=== PATIENT | male | born 1940 | race Caucasian/White ===

== ENCOUNTER 2017-01-22 16:53 | Inpatient (IN) | payer OTHER ==
[~2017-01-22] VITALS: Ht 165.1 cm; Wt 67.5 kg
[2017-01-22 21:30] VITALS: Ht 165.1 cm; Wt 67.5 kg
[2017-01-22] MEDS ORDERED: OXYC-279 PO (21:48)
[2017-01-22] MEDS ORDERED: ATEN-51 PO (21:48)
[2017-01-22] MEDS ORDERED: SIMV20TA6 PO (21:48)
[2017-01-22] MEDS ORDERED: OMEG300C3 PO (21:48)
[2017-01-22] MEDS ORDERED: ASPI81TA3 PO (21:48)
[2017-01-22 22:22] VITALS: BP 148/67; RESP 18
[2017-01-22] MEDS ORDERED: DOCUSATE SODIUM 100 MG CAP PO PRN (22:30)
[2017-01-22] MEDS ORDERED: OXYCODONE/ACETAMINOPHEN (5/325) TAB PO PRN (22:30)
[2017-01-22] MEDS ORDERED: ACETAMINOPHEN 325 MG TAB PO PRN (22:30)
[2017-01-22] MEDS: ONDANSETRON 4 MG INJ IV PRN (23:57)
[2017-01-22] MEDS: morphine 2 MG INJ IV PRN (23:57)
[2017-01-23] MEDS: PANTOPRAZOLE (EC) 40 MG TAB PO SCH (05:39)
[2017-01-23 06:13] LABS: ADD SCAN DIFF NO
[2017-01-23 06:19] LABS: BASOPHILS % 0.5 % (0.0-2.0); EOSINOPHILS % 0.5 % (0.0-7.0); HEMOGLOBIN 11.6 g/dl (14.0-18.0); LYMPHOCYTES # 3.2 10^3/ul (0.8-2.9); LYMPHOCYTES % 37.7 % (15.0-51.0); MEAN CORPUSCULAR HEMOGLOBIN 31.7 pg (29.0-33.0); MEAN CORPUSCULAR HGB CONC 34.1 g/dl (32.0-37.0); MEAN CORPUSCULAR VOLUME 92.9 fl (82.0-101.0); MEAN PLATELET VOLUME 10.3 fl (7.4-10.4); MONOCYTE # 1.2 10^3/ul (0.3-0.9); MONOCYTES % 14.6 % (0.0-11.0); NEUTROPHIL # 3.9 10^3/ul (1.6-7.5); NEUTROPHILS % 46.3 % (39.0-77.0); PLATELET COUNT 255 10^3/UL (140-415); RED BLOOD COUNT 3.66 10^6/ul (4.70-6.10); RED CELL DISTRIBUTION WIDTH 12.1 % (11.5-14.5); WHITE BLOOD COUNT 8.4 10^3/ul (4.8-10.8)
[2017-01-23 06:41] LABS: ALBUMIN 4.4 g/dl (3.3-4.9); ALBUMIN/GLOBULIN RATIO 1.46; BILIRUBIN,INDIRECT 0.2 mg/dl (0-1.1); BILIRUBIN,TOTAL 0.2 mg/dl (0.2-1.3); CALCIUM 9.9 mg/dl (8.4-10.2); CREATININE 0.94 mg/dl (0.61-1.24); POTASSIUM 4.1 mmol/L (3.5-5.1); TOTAL PROTEIN 7.4 g/dl (6.1-8.1)
[2017-01-23 07:19] VITALS: BP 110/53; RESP 16
[2017-01-23] MEDS: ASPIRIN 81 MG TAB PO SCH (09:11)
[2017-01-23] MEDS: ATENOLOL 25 MG TAB PO SCH (09:12)
[2017-01-23] MEDS: morphine 2 MG INJ IV PRN (14:29)
[2017-01-23] MEDS: ONDANSETRON 4 MG INJ IV PRN (14:29)
[2017-01-23] MEDS: ALPRAZOLAM 0.25 MG TAB PO PRN (16:18)
[2017-01-23 19:51] VITALS: BP 98/50; RESP 20
--- NOTE | 2017-01-23 20:15 | QN ---
Documentation Comment [id number] LESLEY SHEPPARD MD Jan 23, 2017 20:15
--- NOTE | 2017-01-23 20:52 | RADRPT ---
PROCEDURE: MRI Lumbar Spine without contrast. CLINICAL INDICATION: 76-year-old male with lumbar spine pain. TECHNIQUE: An MRI of the lumbar spine was performed with multiple sequences in the sagittal and ax ial planes without contrast. Images reviewed on a high-resolution PACS system. COMPARISON: None available at the time of dictation. FINDINGS: There is a moderate amount of motion artifact on all of the axial sequences, significantly limiting evaluation. The alignment of the lumbar spine is normal. There is transitional anatomy with 6 lumb ar-type vertebral bodies and well formed disc between S1-S2. No vertebral body subluxation is seen. There is diffuse desiccation of the intervertebral discs with preserved disc-space heights. No si gnificant discogenic endplate changes are seen y. The vertebral body heights and marrow signal are normal. The conus medullaris is visible at the L1 level and appears grossly normal. The lumbar ne rve roots are normal in appearance. The paraspinal soft tissues are unremarkable. No significant pa raspinal soft tissue swelling. L1-L2: The posterior margin of the disc is normal in appearance. No significant disc bulge or prot rusion is evident. The central canal and neural foramina are adequately patent. L2-L3: There is a 2 mm annular disc bulge asymmetric to the left foraminal region. The thecal sac and lateral recesses are patent. There is mild bilateral facet spondylosis. There is mild left brian ral foraminal narrowing. The right neural foramen is patent. L3-L4: There is a 2 mm annular disc bulge. The thecal sac and lateral recesses are patent. There is mild bilateral facet spondylosis. There is mild bilateral neural foraminal narrowing. L4-L5: There is a 2-3 mm annular disc bulge, slightly asymmetric to the left paracentral/foraminal region. There is moderate bilateral facet spondylosis. There is moderate left and mild right later al recess narrowing. The thecal sac measures 10 mm midline AP diameter. There is moderate bilatera l neural foraminal narrowing. L5-S1: There is moderate spondylosis asymmetric to the right with asymmetric left-sided disc-space height loss and superimposed 2-3 mm annular disc bulge. There is moderate bilateral facet spondylosi s with prominent buckling ligamentum flavum. The thecal sac measures 7 mm midline AP diameter. The re is severe narrowing of both lateral recesses. There is severe left and mild right neural foramin al narrowing. IMPRESSION: 1. Multilevel mild to moderate spondylosis/degenerative enthesopathy, worst at L5-S1 with subsequen t severe narrowing of both lateral recesses and severe left neural foraminal narrowing at this level . 2. No evidence of fracture or dislocation. RPTAT: HGAS .Jose D Doshi MD, MD Date Time Electronically viewed and signed by .Jose D Doshi MD, on 01/23/2017 20:52 .S/
[2017-01-23] MEDS: KETOROLAC 30 MG INJ IV PRN (21:17)
[2017-01-23] MEDS: BISACODYL (EC) 5 MG TAB PO PRN (21:46)
--- NOTE | 2017-01-24 01:20 | RADRPT ---
PROCEDURE: MRI right shoulder CLINICAL INDICATION: Right shoulder intractable pain TECHNIQUE: Noncontrast MRI of the right shoulder, with axial, sagittal and coronal reformatted jazz ges. T2-weighted and proton density sequences were employed. COMPARISON: None FINDINGS: No acute fracture, dislocation or marrow replacement process. Mild to moderate right shoulder joint effusion with migration of contrast in the subacromial subdelt oid space. There is a likely full-thickness partial with tear at the anterior region of the suprasp inatus, and this may be further evaluated on the MR arthrogram of the right shoulder if clinically r equired. Remaining rotator cuff appears intact. Intra-articular biceps is intact. Tears of the post erior superior and superior posterior glenoid labrum evidenced by attenuation. The glenoid labrum is otherwise unremarkable. Degenerative changes at the articular humeral head with likely full-thickness articular cartilage ch ondrolysis the anterior lateral aspect of the articular humeral head and the posterior articular hum eral head. Fibrocystic changes seen in the regions. Degenerative changes in the acromioclavicular joint. IMPRESSION: 1. Mild to moderate right shoulder joint effusion. 2. Likely tear of the anterior region of the supraspinatus, with migration of joint fluid into the subacromial subdeltoid bursa. 3. This may be further evaluated by MR arthrogram. 4. Tears of the posterior superior and superior glenoid labrum. 5. No acute fracture. RPTAT: [facility] Physician Rod Date Time Electronically viewed and signed by Physician Rod on 01/24/2017 01:20 RS/
--- NOTE | 2017-01-24 01:25 | RADRPT ---
PROCEDURE: MR Knee. CLINICAL INDICATION: Pain and inflammation in the left knee. TECHNIQUE: Noncontrast MRI of the left knee, with axial, sagittal and coronal reformatted images. Proton density images and fat saturation technique were employed. COMPARISON: No prior studies are available for comparison. FINDINGS: Increased fluid signal within the ACL suggests an age indeterminate nonspecific low grade ACL injury , with intact fibers identified. The PCL extensor mechanism tendons and collateral ligamentous supporting structures are all normal. The posterolateral corner is intact. The menisci are normal. There are no tears flaps or flipped meniscal fragments. The meniscal roots are intact. Partial thickness articular cartilage chondrolysis in the bilateral articular patella. Medial anter ior femoral condyle full-thickness articular cartilage chondrolysis. The articular cartilage is oth erwise intact. There are no abnormal fluid collections. Superior and inferior patellar enthesophytes. IMPRESSION: 1. Partial thickness articular cartilage chondrolysis in the bilateral articular patella. 2. Medial anterior femoral condyle full-thickness articular cartilage chondrolysis. 3. Age indeterminate nonspecific low grade ACL injury, with intact fibers identified. 4. Otherwise, no acute process in the left knee. RPTAT: [facility] Physician Rod Date Time Electronically viewed and signed by Physician Rod on 01/24/2017 01:25 RS/
[2017-01-24 03:20] VITALS: BP 115/57; RESP 16
[2017-01-24] MEDS: KETOROLAC 30 MG INJ IV PRN (05:36)
[2017-01-24] MEDS: PANTOPRAZOLE (EC) 40 MG TAB PO SCH (05:36)
[2017-01-24 06:50] LABS: ALBUMIN 4.4 g/dl (3.3-4.9); ALBUMIN/GLOBULIN RATIO 1.46; BILIRUBIN,INDIRECT 0.3 mg/dl (0-1.1); BILIRUBIN,TOTAL 0.3 mg/dl (0.2-1.3); CALCIUM 9.8 mg/dl (8.4-10.2); CREATININE 1.06 mg/dl (0.61-1.24); POTASSIUM 4.2 mmol/L (3.5-5.1); TOTAL PROTEIN 7.4 g/dl (6.1-8.1)
[2017-01-24] MEDS: morphine 2 MG INJ IV PRN (08:10)
[2017-01-24 08:15] VITALS: BP 135/63; RESP 18
[2017-01-24] MEDS: ATENOLOL 25 MG TAB PO SCH (09:11)
[2017-01-24] MEDS: ASPIRIN 81 MG TAB PO SCH (09:11)
[2017-01-24 14:23] VITALS: BP 121/59; RESP 18
[2017-01-24] MEDS ORDERED: HYDROmorphONE 2 MG TAB PO PRN (14:30)
[2017-01-24] MEDS: HYDROmorphONE 1 MG/ML SYG IV PRN ×2 (15:12→21:09)
[2017-01-24 20:00] VITALS: BP 117/59; PULSE 60; RESP 16
[2017-01-24] MEDS: ALPRAZOLAM 0.25 MG TAB PO PRN (21:50)
--- NOTE | 2017-01-24 23:26 | PN ---
Date/Time of Note Date/Time of Note DATE: 01/24/17 TIME: 23:22 Assessment/Plan VTE Prophylaxis VTE Prophylaxis Intervention: other Lines/Catheters IV Catheter Type (from Nrsg): Saline Lock Assessment/Plan Chief Complaint/Hosp Course back pain shoulder pain djd oa plan pain meds Problems: Subjective 24 Hr Interval Summary Subjective hx not possible: other (back pain,ortho saw pt continue pain meds per ortho) Exam/Review of Systems Vital Signs Vitals Vital Signs Date Time Temp Pulse Resp B/P Pulse Ox O2 Delivery O2 Flow Rate FiO2 01/24/17 20:00 99.1 60 16 117/59 94 Room Air Intake and Output 01/23/17 01/23/17 01/24/17 15:00 23:00 07:00 Intake Total 1560 ml 680 ml Balance 1560 ml 680 ml Exam Neck: supple Respiratory: clear to auscultation Cardiovascular: regular rate and rhythm Gastrointestinal: soft Musculoskeletal: nl extremities to inspection Extremities: normal pulses Results Result Diagram: 01/23/17 0542 01/24/17 0547 Results 24 hrs Laboratory Tests Test 01/24/17 05:47 Sodium Level 133 L Potassium Level 4.2 Chloride Level 98 Carbon Dioxide Level 28 Anion Gap 11 Blood Urea Nitrogen 26 H Creatinine 1.06 Glucose Level 92 Calcium Level 9.8 Total Bilirubin 0.3 Direct Bilirubin 0.00 Indirect Bilirubin 0.3 Aspartate Amino Transf (AST/SGOT) 24 Alanine Aminotransferase (ALT/SGPT) 32 Alkaline Phosphatase 53 Total Protein 7.4 Albumin 4.4 Globulin 3.00 Albumin/Globulin Ratio 1.46 Medications Medications Current Medications Pantoprazole (Protonix Tab) 40 mg DAILY@06 PO Last administered on 01/24/17 05 :36; Admin Dose 40 MG; Start 01/23/17 at 06:00 Bisacodyl (Dulcolax) 10 mg DAILY PRN PO CONSTIPATION Last administered on 21:46; Admin Dose 10 MG; Start 01/22/17 at 22:30 Docusate Sodium (Colace) 100 mg BID PRN PO CONSTIPATION Last administered on 21:07; Admin Dose 100 MG; Start 01/22/17 at 22:30 Acetaminophen (Tylenol Tab) 650 mg Q6H PRN PO PAIN AND OR ELEVATED TEMP; Start 01/22/17 at 22:30 Aspirin (Aspirin) 81 mg DAILY PO Last administered on 01/24/17 09:11; Admin Dose 81 MG; Start 01/23/17 at 09:00 Atenolol (Tenormin) 25 mg DAILY PO Last administered on 01/24/17 09:11; Admin Dose 25 MG; Start 01/23/17 at 09:00 Ondansetron HCl (Zofran Inj) 4 mg Q4H PRN IV NAUSEA AND/OR VOMITING Last administered on 01/23/17 14:29; Admin Dose 4 MG; Start 01/23/17 at 00:00 Alprazolam (Xanax) 0.5 mg QHS PRN PO SLEEP Last administered on 01/24/17 21:50 ; Admin Dose 0.5 MG; Start 01/23/17 at 00:00 Hydromorphone HCl (Dilaudid) 1 mg Q4H PRN IV PAIN Last administered on 21:09; Admin Dose 1 MG; Start 01/24/17 at 14:30 Hydromorphone HCl (Dilaudid) 4 mg Q4H PRN PO PAIN; Start 01/24/17 at 14:30 LESLEY SHEPPARD MD Jan 24, 2017 23:26
[2017-01-25] MEDS: HYDROmorphONE 1 MG/ML SYG IV PRN ×4 (01:36→18:24)
[2017-01-25] MEDS: PANTOPRAZOLE (EC) 40 MG TAB PO SCH (05:42)
--- NOTE | 2017-01-25 07:04 | CONS ---
DATE OF ADMISSION: 01/22/2017 DATE OF CONSULTATION: 01/24/2017 CHIEF COMPLAINT: Back pain, left shoulder pain. HISTORY OF PRESENT ILLNESS: This is a 76-year-old male who is complaining of low back pain and left shoulder pain for the last couple of months. He denies any recent infections. He denies any history of trauma. He states that the low back pain is constant. It does not radiate. He denies any numbness or weakness. He is also complaining in pain on top of the left shoulder. The pain is sharp. There is no numbness or weakness. PAST MEDICAL HISTORY: None. MEDICATION: None. PAST SURGICAL HISTORY: None. SOCIAL HISTORY: He lives at home. Denies tobacco, alcohol or drug use. FAMILY HISTORY: Noncontributory. ALLERGIES: NO KNOWN DRUG ALLERGIES. PHYSICAL EXAMINATION: VITAL SIGNS: Afebrile. 98.7, 148/64, pulse of 68, respiratory rate of 16. EXTREMITIES: Left shoulder, there is no erythema, warmth of fluctuance. He is tender over the anterior deltoid. 160 degrees of flexion, 40 degrees of extension, 80 degrees of external rotation, 70 degrees of internal rotation, 170 degrees of abduction. Negative Neer's. Negative Scales test. 5/5 function of the axial, radial, ulnar and median nerves. LUMBAR SPINE: Tender to palpation over the lumbar region. Decreased range of motion due to pain. 5/5 function of quadriceps, tibialis anterior, gastroc soleus. LABORATORY: 1. MRI, left shoulder: There is minimal left shoulder joint effusion. There is a tear of the supraspinatus tendon. 2. Lumbar spine MRI: There is multilevel degenerative disease of the lumbar spine with spondylosis. There is a 7 mm disk herniation at L5-S1. IMPRESSION: A 76-year-old male with multilevel lumbar disk herniation and left shoulder rotator cuff tear. PLAN: Patient can be discharged from orthopedic standpoint. He would benefit from core strengthening, exercises for his lumbar spine. In addition, a back brace should be ordered. In regard to his left shoulder, he can follow-up as an outpatient for possible corticosteroid injection. All questions were answered to his satisfaction. Dictated By: Segundo Petit MD /areli/italia /Document#: [id number] MTDD
[2017-01-25 07:16] VITALS: BP 117/56; RESP 18
[2017-01-25] MEDS: ASPIRIN 81 MG TAB PO SCH (08:57)
[2017-01-25] MEDS: ATENOLOL 25 MG TAB PO SCH (08:57)
--- NOTE | 2017-01-25 13:07 | PN ---
Date/Time of Note Date/Time of Note DATE: 01/25/17 TIME: 13:05 Assessment/Plan VTE Prophylaxis VTE Prophylaxis Intervention: ambulation Lines/Catheters IV Catheter Type (from Nrsg): Saline Lock Assessment/Plan Chief Complaint/Hosp Course 1. back pain due to djd: Multilevel mild to moderate spondylosis/degenerative enthesopathy, worst at L5-S1 with subsequent severe narrowing of both lateral recesses and severe left neural foraminal narrowing at this level. 2. left shoulder pain, left shoulder OA 3. Anemia Problems: Assessment/Plan 1.Orthopedic consult dr Vicente 2. Better pain control Subjective 24 Hr Interval Summary Constitutional: no complaints ENT: no complaints Respiratory: no complaints Cardiovascular: no complaints Gastrointestinal: no complaints Musculoskeletal: back pain Psychological: no complaints Immunologic: no complaints Exam/Review of Systems Vital Signs Vitals Vital Signs Date Time Temp Pulse Resp B/P Pulse Ox O2 Delivery O2 Flow Rate FiO2 01/25/17 07:16 98.7 59 18 117/56 93 01/24/17 20:00 Room Air Intake and Output 01/24/17 01/24/17 01/25/17 15:00 23:00 07:00 Intake Total 1120 ml Balance 1120 ml Exam Constitutional: alert, oriented Respiratory: clear to auscultation Cardiovascular: regular rate and rhythm Musculoskeletal: range of motion (decreased left shoulder pain) Results Result Diagram: 01/23/17 0542 01/24/17 0547 Medications Medications Current Medications Pantoprazole (Protonix Tab) 40 mg DAILY@06 PO Last administered on 01/25/17 05 :42; Admin Dose 40 MG; Start 01/23/17 at 06:00 Bisacodyl (Dulcolax) 10 mg DAILY PRN PO CONSTIPATION Last administered on 21:46; Admin Dose 10 MG; Start 01/22/17 at 22:30 Docusate Sodium (Colace) 100 mg BID PRN PO CONSTIPATION Last administered on 21:07; Admin Dose 100 MG; Start 01/22/17 at 22:30 Acetaminophen (Tylenol Tab) 650 mg Q6H PRN PO PAIN AND OR ELEVATED TEMP; Start 01/22/17 at 22:30 Aspirin (Aspirin) 81 mg DAILY PO Last administered on 01/25/17 08:57; Admin Dose 81 MG; Start 01/23/17 at 09:00 Atenolol (Tenormin) 25 mg DAILY PO Last administered on 01/25/17 08:57; Admin Dose 25 MG; Start 01/23/17 at 09:00 Ondansetron HCl (Zofran Inj) 4 mg Q4H PRN IV NAUSEA AND/OR VOMITING Last administered on 01/23/17 14:29; Admin Dose 4 MG; Start 01/23/17 at 00:00 Alprazolam (Xanax) 0.5 mg QHS PRN PO SLEEP Last administered on 01/24/17 21:50 ; Admin Dose 0.5 MG; Start 01/23/17 at 00:00 Hydromorphone HCl (Dilaudid) 1 mg Q4H PRN IV PAIN Last administered on 10:16; Admin Dose 1 MG; Start 01/24/17 at 14:30 Hydromorphone HCl (Dilaudid) 4 mg Q4H PRN PO PAIN; Start 01/24/17 at 14:30 ONIEL GERONIMO Jan 25, 2017 13:07
[2017-01-25 14:04] VITALS: BP 115/57; RESP 18
[2017-01-25 14:06] VITALS: BP 83/50; RESP 18
[2017-01-25] MEDS ORDERED: BUPIVACAINE 0.5%/EPI (SDV) 30 ML INJ INJ ONE (18:00)
[2017-01-25] MEDS ORDERED: BETAMET NA PHOS/AC(6 MG/ML) 5ML INJ INJ ONE (18:00)
[2017-01-25] MEDS ORDERED: BUPIVACAINE 0.5%/EPI (SDV) 10 ML INJ INJ ONE (18:30)
[2017-01-25 19:23] VITALS: BP 112/61; RESP 18
[2017-01-25 20:37] LABS: ANA SCREEN POSITIVE (NEGATIVE)
[2017-01-25 21:57] LABS: ANA TITER 1:40 titer
[2017-01-26 02:04] VITALS: BP 103/56; RESP 18
[2017-01-26] MEDS: BISACODYL (EC) 5 MG TAB PO PRN (02:18)
[2017-01-26] MEDS: HYDROmorphONE 1 MG/ML SYG IV PRN ×2 (05:38→22:17)
[2017-01-26] MEDS: PANTOPRAZOLE (EC) 40 MG TAB PO SCH (05:38)
[2017-01-26 06:20] LABS: CREATININE 0.98 mg/dl (0.61-1.24); POTASSIUM 4.8 mmol/L (3.5-5.1)
[2017-01-26 07:32] VITALS: BP 111/59; RESP 18
[2017-01-26] MEDS: ATENOLOL 25 MG TAB PO SCH (08:17)
[2017-01-26] MEDS: ASPIRIN 81 MG TAB PO SCH (08:17)
[2017-01-26 15:03] VITALS: BP 125/60; RESP 18
[2017-01-26] MEDS ORDERED: LUBIPROSTONE 24 MCG CAP PO PRN (16:00)
[2017-01-26] MEDS ORDERED: NA PHOSPHATE/BIPHOS 133 ML ENEMA PR PRN (16:00)
[2017-01-26] MEDS ORDERED: POLYETHYLENE GLYCOL 17 GM PACKET PO PRN (16:00)
--- NOTE | 2017-01-26 17:52 | PN ---
Date/Time of Note Date/Time of Note DATE: 01/26/17 TIME: 17:50 Assessment/Plan VTE Prophylaxis VTE Prophylaxis Intervention: ambulation Lines/Catheters IV Catheter Type (from Nrsg): Saline Lock Assessment/Plan Chief Complaint/Hosp Course 1. back pain due to djd: Multilevel mild to moderate spondylosis/degenerative enthesopathy, worst at L5-S1 with subsequent severe narrowing of both lateral recesses and severe left neural foraminal narrowing at this level. 2. left shoulder pain, left shoulder OA 3. Anemia 4. CKD, mild Problems: Assessment/Plan 1. Per ortho 2. Optimization kidney function Subjective 24 Hr Interval Summary Constitutional: no complaints Musculoskeletal: restricted range of motion (lef shoulder) Skin: no complaints Exam/Review of Systems Vital Signs Vitals Vital Signs Date Time Temp Pulse Resp B/P Pulse Ox O2 Delivery O2 Flow Rate FiO2 01/26/17 15:03 97.9 54 18 125/60 94 01/24/17 20:00 Room Air Intake and Output 01/25/17 01/25/17 01/26/17 15:00 23:00 07:00 Intake Total 1800 ml 400 ml Balance 1800 ml 400 ml Exam Head: normocephalic Eyes: nl conjunctiva Respiratory: clear to auscultation Cardiovascular: regular rate and rhythm Musculoskeletal: range of motion (left shoulder decreased) Results Result Diagram: 01/23/17 0542 01/26/17 0518 Results 24 hrs Laboratory Tests Test 01/26/17 05:18 Sodium Level 140 Potassium Level 4.8 Chloride Level 99 Carbon Dioxide Level 26 Anion Gap 20 #H Blood Urea Nitrogen 28 H Creatinine 0.98 Glucose Level 169 Calcium Level 10.0 Medications Medications Current Medications Pantoprazole (Protonix Tab) 40 mg DAILY@06 PO Last administered on 01/26/17 05 :38; Admin Dose 40 MG; Start 01/23/17 at 06:00 Bisacodyl (Dulcolax) 10 mg DAILY PRN PO CONSTIPATION Last administered on 02:18; Admin Dose 10 MG; Start 01/22/17 at 22:30 Docusate Sodium (Colace) 100 mg BID PRN PO CONSTIPATION Last administered on 21:07; Admin Dose 100 MG; Start 01/22/17 at 22:30 Acetaminophen (Tylenol Tab) 650 mg Q6H PRN PO PAIN AND OR ELEVATED TEMP; Start 01/22/17 at 22:30 Aspirin (Aspirin) 81 mg DAILY PO Last administered on 01/26/17 08:17; Admin Dose 81 MG; Start 01/23/17 at 09:00 Atenolol (Tenormin) 25 mg DAILY PO Last administered on 01/26/17 08:17; Admin Dose 25 MG; Start 01/23/17 at 09:00 Ondansetron HCl (Zofran Inj) 4 mg Q4H PRN IV NAUSEA AND/OR VOMITING Last administered on 01/23/17 14:29; Admin Dose 4 MG; Start 01/23/17 at 00:00 Alprazolam (Xanax) 0.5 mg QHS PRN PO SLEEP Last administered on 01/24/17 21:50 ; Admin Dose 0.5 MG; Start 01/23/17 at 00:00 Hydromorphone HCl (Dilaudid) 1 mg Q4H PRN IV PAIN Last administered on 05:38; Admin Dose 1 MG; Start 01/24/17 at 14:30 Hydromorphone HCl (Dilaudid) 4 mg Q4H PRN PO PAIN; Start 01/24/17 at 14:30 Lubiprostone (Amitiza) 24 mcg BID PRN PO constipation; Start 01/26/17 at 16:00 Polyethylene Glycol (Miralax) 17 gm DAILY PRN PO CONSTIPATION; Start 01/26/17 at 16:00 Sodium Biphosphate/ Sodium Phosphate (Fleet Enema) 133 ml DAILY PRN [place] CONSTIPATION Last administered on 01/26/17 16:29; Admin Dose 133 ML; Start at 16:00 ONIEL GERONIMO Jan 26, 2017 17:52
[2017-01-26 19:19] VITALS: BP 133/58; RESP 18
[2017-01-27 02:00] VITALS: BP 114/54; RESP 18
[2017-01-27] MEDS: PANTOPRAZOLE (EC) 40 MG TAB PO SCH (05:54)
[2017-01-27 07:19] VITALS: BP 110/56; RESP 18
[2017-01-27 09:21] VITALS: BP 134/73; PULSE 62
[2017-01-27] MEDS: ATENOLOL 25 MG TAB PO SCH (09:22)
[2017-01-27] MEDS: ASPIRIN 81 MG TAB PO SCH (09:22)
[2017-01-27 13:23] VITALS: BP 106/59; RESP 18
--- NOTE | 2017-01-27 16:10 | PDOCDIS ---
Discharge Instructions CONDITION Patient Condition: Stable HOME CARE INSTRUCTIONS: Special Diet: Low Na diet ACTIVITY: Activity Restrictions: Slowly Increase Activity FOLLOW UP/APPOINTMENTS Follow-up Plan f/u dr marquez 1 wk see own pcp 1 wk LESLEY SHEPPARD MD Jan 27, 2017 16:10
[2017-01-27] MEDS ORDERED: HYDR2TAB36 PO (16:19)
[2017-01-27] MEDS ORDERED: POLY17PO6 PO (16:19)
[2017-01-27] MEDS ORDERED: LUBI24CA7 PO (16:19)
[2017-01-27] MEDS ORDERED: DOCU-216 PO (16:19)
[2017-01-27] MEDS ORDERED: ACET325T40 PO (16:19)
[2017-01-27] MEDS ORDERED: PANT40TA4 PO (16:19)
[2017-01-27] MEDS ORDERED: BISA5TAB6 PO (16:19)
[2017-01-27] MEDS: HYDROmorphONE 1 MG/ML SYG IV PRN (17:19)
--- NOTE | 2017-01-27 18:26 | PN ---
Date/Time of Note Date/Time of Note DATE: 01/27/17 TIME: 18:25 Assessment/Plan VTE Prophylaxis VTE Prophylaxis Intervention: other Lines/Catheters IV Catheter Type (from Nrsg): Saline Lock Assessment/Plan Chief Complaint/Hosp Course back pain shoulder pain BETTER djd oa plan pain meds HOME Problems: Subjective 24 Hr Interval Summary Subjective hx not possible: other (SHOULDER PAIN BETTER) Exam/Review of Systems Vital Signs Vitals Vital Signs Date Time Temp Pulse Resp B/P Pulse Ox O2 Delivery O2 Flow Rate FiO2 01/27/17 13:23 98.8 59 18 106/59 96 01/24/17 20:00 Room Air Intake and Output 01/26/17 01/26/17 01/27/17 15:00 23:00 07:00 Intake Total 960 ml 300 ml Balance 960 ml 300 ml Exam Neck: supple Respiratory: clear to auscultation Cardiovascular: regular rate and rhythm Gastrointestinal: soft Results Result Diagram: 01/23/17 0542 01/26/17 0518 Medications Medications Current Medications Pantoprazole (Protonix Tab) 40 mg DAILY@06 PO Last administered on 01/27/17 05 :54; Admin Dose 40 MG; Start 01/23/17 at 06:00 Bisacodyl (Dulcolax) 10 mg DAILY PRN PO CONSTIPATION Last administered on 02:18; Admin Dose 10 MG; Start 01/22/17 at 22:30 Docusate Sodium (Colace) 100 mg BID PRN PO CONSTIPATION Last administered on 21:07; Admin Dose 100 MG; Start 01/22/17 at 22:30 Acetaminophen (Tylenol Tab) 650 mg Q6H PRN PO PAIN AND OR ELEVATED TEMP; Start 01/22/17 at 22:30 Aspirin (Aspirin) 81 mg DAILY PO Last administered on 01/27/17 09:22; Admin Dose 81 MG; Start 01/23/17 at 09:00 Atenolol (Tenormin) 25 mg DAILY PO Last administered on 01/27/17 09:22; Admin Dose 25 MG; Start 01/23/17 at 09:00 Ondansetron HCl (Zofran Inj) 4 mg Q4H PRN IV NAUSEA AND/OR VOMITING Last administered on 01/23/17 14:29; Admin Dose 4 MG; Start 01/23/17 at 00:00 Alprazolam (Xanax) 0.5 mg QHS PRN PO SLEEP Last administered on 01/24/17 21:50 ; Admin Dose 0.5 MG; Start 01/23/17 at 00:00 Hydromorphone HCl (Dilaudid) 1 mg Q4H PRN IV PAIN Last administered on 17:19; Admin Dose 1 MG; Start 01/24/17 at 14:30 Hydromorphone HCl (Dilaudid) 4 mg Q4H PRN PO PAIN; Start 01/24/17 at 14:30 Lubiprostone (Amitiza) 24 mcg BID PRN PO constipation; Start 01/26/17 at 16:00 Polyethylene Glycol (Miralax) 17 gm DAILY PRN PO CONSTIPATION; Start 01/26/17 at 16:00 Sodium Biphosphate/ Sodium Phosphate (Fleet Enema) 133 ml DAILY PRN [place] CONSTIPATION Last administered on 01/26/17 16:29; Admin Dose 133 ML; Start at 16:00 LESLEY SHEPPARD MD Jan 27, 2017 18:25
[2017-01-27 20:00] VITALS: BP 137/61; PULSE 53; RESP 17
[2017-01-28 02:00] VITALS: BP 132/68; PULSE 62; RESP 18
[2017-01-28] MEDS: PANTOPRAZOLE (EC) 40 MG TAB PO SCH (05:34)
[2017-01-28 07:37] VITALS: BP 122/61; RESP 18
[2017-01-28] MEDS: ASPIRIN 81 MG TAB PO SCH (08:08)
[2017-01-28 08:09] VITALS: PULSE 64
[2017-01-28] MEDS: ATENOLOL 25 MG TAB PO SCH (08:09)
[2017-01-28] MEDS: HYDROmorphONE 1 MG/ML SYG IV PRN (11:36)
[2017-01-28 14:03] VITALS: BP 152/68; RESP 18
--- NOTE | 2017-02-01 17:59 | DS ---
Date/Time of Note Date/Time of Note DATE: 02/01/17 TIME: 17:58 Discharge Summary Admission/Discharge Info Admit Date/Time Jan 22, 2017 at 20:51 Discharge Date/Time Jan 28, 2017 at 14:20 Discharge Diagnosis right shoulder pain, DDD, chronic pain Patient Condition: Good Consults RAd Procedures MRI knee , shoulder and lumbar area of the spine Hospital Course back pain shoulder pain BETTER djd oa plan pain meds HOME Home Meds Active Scripts Polyethylene Glycol* (Miralax*) 17 Gm Powd.pack, 17 GM PO DAILY Y for CONSTIPATION for 10 Days Prov:LESLEY SHEPPARD MD 01/27/17 Pantoprazole* (Pantoprazole*) 40 Mg Tablet.dr, 40 MG PO DAILY@06 for 10 Days Prov:LESLEY SHEPPARD MD 01/27/17 Lubiprostone* (Amitiza*) 24 Mcg Capsule, 24 MCG PO BID Y for constipation for 10 Days, CAP Prov:LESLEY SHEPPARD MD 01/27/17 Docusate Sodium (Dok) 100 Mg Capsule, 100 MG PO BID Y for CONSTIPATION for 10 Days, CAP Prov:LESLEY SHEPPARD MD 01/27/17 Bisacodyl* (Bisacodyl*) 5 Mg Tablet.dr, 10 MG PO DAILY Y for CONSTIPATION for 14 Days Prov:LESLEY SHEPPARD MD 01/27/17 Hydromorphone Hcl* (Dilaudid*) 2 Mg Tablet, 4 MG PO Q4H Y for PAIN for 10 Days, TAB Prov:LESLEY SHEPPARD MD 01/27/17 Acetaminophen (MAPAP) 325 Mg Tablet, 650 MG PO Q6H Y for PAIN AND OR ELEVATED TEMP for 14 Days, #20 TAB Prov:LESLEY SHEPPARD MD 01/27/17 Reported Medications Oxycodone HCl/Acetaminophen (Percocet 5-325 mg Tablet) 1 Each Tablet, 1 EACH PO Q6H Y for PAIN, TAB 01/22/17 Aspirin (Aspirin) 81 Mg Chew, 81 MG PO DAILY, TAB.CHEW 01/22/17 [place]-3 Fatty Acids (Fish Oil) 300 Mg Capsule, 300 MG PO, CAP 01/22/17 Simvastatin (Simvastatin) 20 Mg Tablet, 20 MG PO QHS, #30 TAB 01/22/17 Atenolol* (Atenolol*) 25 Mg Tablet, 25 MG PO DAILY, #30 TAB 01/22/17 Primary Care Provider Care Physician ONIEL Melvin Feb 01, 2017 17:59
== END 2017-01-28 14:20 | disposition home or self-care (01) | DRG 552 ==
LOC: MS2 20:51
PROVIDERS: ADMIT Internal Medicine Nephrology; ATTEND Internal Medicine Nephrology
DX: M51.26 Other intervertebral disc displacement, lumbar region (principal); D64.9 Anemia, unspecified; M75.102 Unspecified rotator cuff tear or rupture of left shoulder, not specified as traumatic; M47.896 Other spondylosis, lumbar region; M19.012 Primary osteoarthritis, left shoulder
CPT/HCPCS: 72148; 73221; 73721; 80048; 80053; 85025; 85651; 86038; 86140; 97161; J0702; J1170; J1885; J2270; J2405; L0639

== ENCOUNTER 2018-12-11 07:29 | Day surgery (SDC) | payer OTHER ==
[2018-12-10 13:14] VITALS: BMI 23.3
[~2018-12-11] VITALS: Ht 165.1 cm; Wt 65.9 kg
[2018-12-11] VITALS (13 sets, daily range): BP systolic 129–162; BP diastolic 63–72; PULSE 49–59; RESP 12–22; Ht 165.1 cm; Wt 65.9 kg
[~2018-12-11 07:29] MED LIST: ACET325T40 PO; ASPI-831 PO; ATEN-51 PO; BISA5TAB6 PO; CEFAZOLIN 2 GM/50 ML (PMX) 50 ML IVPB ONE; DOCU-216 PO; HYDR2TAB36 PO; LUBI24CA7 PO; OMEG300C3 PO; OXYC-279 PO; PANT40TA4 PO; POLY17PO6 PO; SIMV20TA20 PO; SOD CHLORIDE 0.9% 1,000 ML IV SCH
[2018-12-11] MEDS ORDERED: ATEN50TA PO (08:03)
[2018-12-11] MEDS ORDERED: ASPI81TA52 PO (08:04)
[2018-12-11] MEDS ORDERED: SIMV20TA PO (08:04)
[2018-12-11] MEDS ORDERED: ROCURONIUM 50 MG INJ ONE (09:00)
[2018-12-11] MEDS ORDERED: ONDANSETRON 4 MG INJ ONE (09:00)
[2018-12-11] MEDS ORDERED: CEFAZOLIN 1 GM INJ ONE (09:00)
[2018-12-11] MEDS ORDERED: PROPOFOL 20 ML ONE (09:00)
[2018-12-11] MEDS ORDERED: FENTAnyl 50 MCG/ML VIAL ONE (09:00)
[2018-12-11] MEDS ORDERED: MIDAZOLAM 1 MG/ML 2 ML INJ ONE (09:00)
[2018-12-11] MEDS ORDERED: NEOSTIGMINE 3 MG/3 ML SYRINGE ONE (09:00)
[2018-12-11] MEDS ORDERED: GLYCOPYRROLATE 0.4 MG INJ ONE (09:00)
[2018-12-11] MEDS ORDERED: DEXAMETHASONE 4 MG/ML 5 ML INJ ONE (09:01)
[2018-12-11] MEDS ORDERED: ROPIVACAINE 0.5 % 30 ML VIAL ONE (09:03)
[2018-12-11] MEDS ORDERED: SUGAMMADEX SODIUM 200 MG/2 ML VIAL IV ONE (09:32)
--- NOTE | 2018-12-11 09:58 | PREAC ---
Date/Time of Note Date/Time of Note DATE: 12/11/18 TIME: 09:56 Anesthesia Eval and Record Evaluation Time Pre-Procedure Interview DATE: 12/11/18 TIME: 09:56 Age 78 Sex male NPO: 8 hrs Preoperative diagnosis LEFT INGUINAL HERNIA Planned procedure OPEN LEFT INGUINAL HERNIA REPAIR WITH MESH Past Medical History Past Medical History: Includes Cardio: HTN, Dyslipidemia, [place], CAD, CABG, PTCA/Stent Surgery & Anesthesia Issues No known issue Meds Anticoagulation: No Beta Elle within 24 hr: Yes Reported Medications Aspirin (Low Dose Aspirin) 81 Mg Tablet.dr, 81 MG PO DAILY, #30 TAB 12/11/18 Simvastatin* (Zocor*) 20 Mg Tablet, 20 MG PO QHS, #30 TAB 12/11/18 Atenolol* (Atenolol*) 50 Mg Tablet, 50 MG PO DAILY, #30 TAB 12/11/18 Discontinued Reported Medications Oxycodone HCl/Acetaminophen (Percocet 5-325 mg Tablet) 1 Each Tablet, 1 EACH PO Q6H PRN for PAIN, TAB 01/22/17 Aspirin (Aspirin) 81 Mg Chew, 81 MG PO DAILY, TAB.CHEW 01/22/17 Floral-3 Fatty Acids (Fish Oil) 300 Mg Capsule, 300 MG PO, CAP 01/22/17 Simvastatin (Simvastatin) 20 Mg Tablet, 20 MG PO QHS, #30 TAB 01/22/17 Atenolol* (Atenolol*) 25 Mg Tablet, 25 MG PO DAILY, #30 TAB 01/22/17 Discontinued Scripts Polyethylene Glycol* (Miralax*) 17 Gm Powd.pack, 17 GM PO DAILY PRN for CONSTIPATION for 10 Days Prov:LESLEY SHEPPARD MD 01/27/17 Pantoprazole* (Pantoprazole*) 40 Mg Tablet., 40 MG PO DAILY@06 for 10 Days Prov:LESLEY SHEPPARD MD 01/27/17 Lubiprostone* (Amitiza*) 24 Mcg Capsule, 24 MCG PO BID PRN for constipation for 10 Days, CAP Prov:LESLEY SHEPPARD MD 01/27/17 Docusate Sodium (Dok) 100 Mg Capsule, 100 MG PO BID PRN for CONSTIPATION for 10 Days, CAP Prov:LESLEY SHEPPARD MD 01/27/17 Bisacodyl* (Bisacodyl*) 5 Mg Tablet.dr, 10 MG PO DAILY PRN for CONSTIPATION for 14 Days Prov:LESLEY SHEPPARD MD 01/27/17 Hydromorphone Hcl* (Dilaudid*) 2 Mg Tablet, 4 MG PO Q4H PRN for PAIN for 10 Days, TAB Prov:LESLEY SHEPPARD MD 01/27/17 Acetaminophen (MAPAP) 325 Mg Tablet, 650 MG PO Q6H PRN for PAIN AND OR ELEVATED TEMP for 14 Days, #20 TAB Prov:LESLEY SHEPPARD MD 01/27/17 Current Medications Sodium Chloride 1,000 ml @ 75 mls/hr [id number] IV Last administered on 12/11/18at 08:24; Admin Dose 75 MLS/HR; Start 12/11/18 at 07:00; Stop 12/11/18 at 20:19 Meds reviewed: Yes Allergies Coded Allergies: No Known Allergy (Unverified , 12/11/18) Allergies Reviewed: Yes Labs/Studies Labs Reviewed: Reviewed by anesthesiologist Result Diagram: 12/11/1818 12/11/1818 Laboratory Tests 12/11/18 08:18 test: N/A Studies: ECG (WNL), CXR (NAPD) Pre-procedure Exam Last vitals Vital Signs Date Temp Pulse Resp B/P (MAP) Pulse Ox O2 O2 Flow FiO2 Time Delivery Rate 12/11/18 96.8 51 16 139/63 100 08:34 (88) Airway: Adequate mouth opening, Adequate thyromental dist Mallampati: Mallampati II Teeth: Normal Lung: Normal Heart: Normal ASA Physical Status ASA physical status: 3 Emergency: None Planned Anesthetic General/MAC: ETT Nerve block: TAP (left) Planned Pain Management Single shot nerve block, Parenteral pain med Pre-operative Attestations Prior to commencing anesthesia and surgery, the patient was re-evaluated, there was verification of: *The patient's identity *The results of appropriate recent lab work and preoperative vital signs *The above evaluation not changing prior to induction *Anesthetic plan, risk benefits, alternative and complications discussed with patient/family; questions answered; patient/family understands, accepts and wishes to proceed. Arden James M.D. December 11, 2018 09:58
[2018-12-11] MEDS ORDERED: POLYMYXIN/BACITRACIN 1L IRRIG ONE (10:07)
--- NOTE | 2018-12-11 11:13 | OPR ---
Date/Time of Note Date/Time of Note DATE: 12/11/18 TIME: 11:10 Operative Report Procedure Date: December 11, 2018 Preoperative Diagnosis left incarcerated inguinal hernia Postoperative Diagnosis same Operation/Procedure Performed open left incarcerated inguinal hernia repair with large ultrapro plug mesh Surgeon see signature line Transfer Clerk none Anesthesia Type: general Estimated Blood Loss: 0 - 10 ml's Transfusion none Specimen none Grafts/Implants none Complications none Pt Condition Post Procedure: stable Indications This is a 78-year-old male with an incarcerated left inguinal hernia. He requests surgical repair. Risks alternatives benefits and personal were d iscussed the patient. Patient expressed understanding consents to the operation. Procedure Description Patient is taken to the OR and prepped and draped in usual sterile fashion. Surgical timeout was performed. IV antibiotics given. Left inguinal oblique incision made at the 10 blade. Dissection with cautery scant externally fascia. The extremity fascia is open with a 15 blade. This incision extended medial fairly lateral sparely with Metzenbaum scissors. Cord structures identified encircled with a [place] drain. Incarcerated indirect and direct hernia identified. These are lysed and manually reduced. After manual reduction this area is bolstered with the disc portion of the ultra pro hernia system mesh. This was secured in place the running 0 Prolene from the pubic tubercle along the shelving is unlimited. Superiorly the disc is secured to enter oblique with interrupted 3-0 Vicryl. Onlay mesh was secured in a similar fashion with a running oh point from the pubic tubercle along the shelving is unlimited. Straps are created reapproximate around the cord structures with interrupted 0 Prolene. Onlay mesh was also secured to enter oblique with interrupted 3-0 Vicryl. Externally fascia was closed with running 3-0 Vicryl. Matt's fascia was closed with interrupted 3-0 Vicryl. Skin is closed and skin clara inzorb. A tap block was provided by the anesthesiologist. Dry dressings were applied. Adair MARIO December 11, 2018 11:13
--- NOTE | 2018-12-11 11:27 | PAC ---
Date/Time of Note Date/Time of Note DATE: 12/11/18 TIME: 11:27 Post-Anesthesia Notes Post-Anesthesia Note Last documented vital signs Vital Signs Date Temp Pulse Resp B/P (MAP) Pulse Ox O2 O2 Flow FiO2 Time Delivery Rate 12/11/18 50 17 161/70 100 Nasal 2.0 11:20 (100) Cannula 12/11/18 98.0 11:20 Activity: WNL Respiratory function: WNL Cardiovascular function: WNL Mental status: Baseline Pain reasonably controlled: Yes Hydration appropriate: Yes Nausea/Vomiting absent: Yes Arden James M.D. December 11, 2018 11:27
[2018-12-11] MEDS ORDERED: HYDROCODONE/APAP (5/325) TAB PO ONE (11:30)
== END 2018-12-11 12:59 | disposition home or self-care (01) ==
LOC: SDS 07:29
PROVIDERS: ATTEND Surgery
DX: K40.30 Unilateral inguinal hernia, with obstruction, without gangrene, not specified as recurrent (principal); I10 Essential (primary) hypertension; E78.2 Mixed hyperlipidemia; I25.9 Chronic ischemic heart disease, unspecified
CPT/HCPCS: 49507; 71045; 80053; 85025; 85610; 85730; C1781; J0690; J1100; J2250; J2405; J2710; J2795; J3010; Z7512; Z7610

== ENCOUNTER 2019-01-19 07:25 | Day surgery (SDC) | payer OTHER ==
[2019-01-19] VITALS (13 sets, daily range): BP systolic 142–167; BP diastolic 58–85; PULSE 50–56; RESP 11–20; Ht 157.5 cm; Wt 67.9 kg
[~2019-01-19] VITALS: Ht 157.5 cm; Wt 67.9 kg
[~2019-01-19 07:25] MED LIST changes: -ACET325T40 PO; -ASPI-831 PO; +ASPI81TA52 PO; -ATEN-51 PO; +ATEN50TA PO; -BISA5TAB6 PO; -DOCU-216 PO; -HYDR2TAB36 PO; -LUBI24CA7 PO; -OMEG300C3 PO; -OXYC-279 PO; -PANT40TA4 PO; -POLY17PO6 PO; +SIMV20TA PO; -SIMV20TA20 PO; +SOD CHLORIDE 0.9% 1,000 ML IV ONE; -SOD CHLORIDE 0.9% 1,000 ML IV SCH
[2019-01-19] MEDS ORDERED: RANI150T5 ORAL (08:39)
[2019-01-19] MEDS ORDERED: DICL75TA2 ORAL (08:39)
--- NOTE | 2019-01-19 09:08 | PREAC ---
Date/Time of Note Date/Time of Note DATE: 01/19/19 TIME: 09:07 Anesthesia Eval and Record Evaluation Time Pre-Procedure Interview DATE: 01/19/19 TIME: 09:07 Age 78 Sex male NPO: 8 hrs Preoperative diagnosis R inguinal hernia Planned procedure open right inguinal hernia repair Past Medical History Past Medical History: Includes Cardio: HTN, Dyslipidemia, CAD, CABG Musculoskeletal: Osteoarthritis GI: GERD Heme: Anemia Surgery & Anesthesia Issues No known issue Meds Anticoagulation: No Beta Elle within 24 hr: No Reason Beta Elle not given: Pt. not on B-Elle Reported Medications Ranitidine Hcl* (Ranitidine Hcl*) 150 Mg Tablet, 1 TAB ORAL BID 01/19/19 Diclofenac Sodium* (Diclofenac Sodium*) 75 Mg Tablet.dr, 1 TAB ORAL DAILY 01/19/19 Aspirin (Low Dose Aspirin) 81 Mg Tablet.dr, 81 MG PO DAILY, #30 TAB 12/11/18 Simvastatin* (Zocor*) 20 Mg Tablet, 20 MG PO QHS, #30 TAB 12/11/18 Atenolol* (Atenolol*) 50 Mg Tablet, 50 MG PO DAILY, #30 TAB 12/11/18 Current Medications Sodium Chloride 1,000 ml @ 75 mls/hr [id number] ONCE IV Last administered on 01/19/19at 08:37; Admin Dose 75 MLS/HR; Start 01/19/19 at 07:00; Stop 01/19/19 at 20:19 Meds reviewed: Yes Allergies Coded Allergies: No Known Allergy (Unverified , 01/19/19) Allergies Reviewed: Yes Labs/Studies Labs Reviewed: Reviewed by anesthesiologist Result Diagram: 01/19/1921 01/19/19 0821 Laboratory Tests 01/19/19 08:21 test: N/A Studies: ECG Pre-procedure Exam Last vitals Vital Signs Date Temp Pulse Resp B/P (MAP) Pulse Ox O2 O2 Flow FiO2 Time Delivery Rate 01/19/19 97.0 55 16 143/85 99 07:40 (104) Airway: Adequate mouth opening, Adequate thyromental dist Mallampati: Mallampati II Teeth: Normal Lung: Normal Heart: Normal ASA Physical Status ASA physical status: 3 Emergency: None Planned Anesthetic General/MAC: ETT Nerve block: TAP (right) Pre-operative Attestations Prior to commencing anesthesia and surgery, the patient was re-evaluated, there was verification of: *The patient's identity *The results of appropriate recent lab work and preoperative vital signs *The above evaluation not changing prior to induction *Anesthetic plan, risk benefits, alternative and complications discussed with patient/family; questions answered; patient/family understands, accepts and wishes to proceed. YUE GRANDE Jan 19, 2019 09:08
[2019-01-19] MEDS ORDERED: POLYMYXIN/BACITRACIN 1L IRRIG ONE (09:20)
[2019-01-19] MEDS ORDERED: FENTAnyl 50 MCG/ML VIAL IV PRN ×2 (09:30)
[2019-01-19] MEDS ORDERED: ALBUTEROL 0.083% (NEB) 2.5 MG/3 ML AMP HHN PRN (09:30)
[2019-01-19] MEDS ORDERED: HYDROmorphONE 1 MG/5 ML IV SYRINGE IV PRN (09:30)
[2019-01-19] MEDS ORDERED: DIPHENHYDRAMINE 50 MG INJ IV PRN (09:30)
[2019-01-19] MEDS ORDERED: METOCLOPRAMIDE 10 MG INJ IV PRN (09:30)
[2019-01-19] MEDS ORDERED: ONDANSETRON 4 MG INJ IV PRN (09:30)
[2019-01-19] MEDS ORDERED: ROPIVACAINE 0.5 % 30 ML VIAL ONE (09:38)
[2019-01-19] MEDS ORDERED: FENTAnyl 50 MCG/ML VIAL ONE (09:38)
[2019-01-19] MEDS ORDERED: PROPOFOL 20 ML ONE (10:16)
[2019-01-19] MEDS ORDERED: SUCCINYLCHOLINE CHLORIDE 100 MG/5 ML SYG IV ONE (10:16)
[2019-01-19] MEDS ORDERED: LIDOCAINE 100 MG SYRINGE ONE (10:17)
[2019-01-19] MEDS ORDERED: SUGAMMADEX SODIUM 200 MG/2 ML VIAL IV ONE (10:17)
[2019-01-19] MEDS ORDERED: CEFAZOLIN 1 GM INJ ONE (10:17)
[2019-01-19] MEDS ORDERED: ROCURONIUM 50 MG INJ ONE (10:17)
[2019-01-19] MEDS ORDERED: HYDROCODONE/APAP (5/325) TAB PO ONE (10:30)
--- NOTE | 2019-01-19 10:36 | OPR ---
Date/Time of Note Date/Time of Note DATE: 01/19/19 TIME: 10:30 Operative Report Procedure Date: Jan 19, 2019 Preoperative Diagnosis incarcerated right inguinal hernia Postoperative Diagnosis same Operation/Procedure Performed open right incarcerated inguinal hernia repair with large ultrapro plug hernia system mesh Surgeon see signature line Nut Chopper none Anesthesia Type: general Estimated Blood Loss: 0 - 10 ml's Transfusion none Specimen none Grafts/Implants none Complications none Pt Condition Post Procedure: stable Indications This is an 78-year-old male with an incarcerated right inguinal hernia. He request surgical repair. Risks alternatives benefits and personal were discussed the patient. Patient expressed understanding and consents to the operation. Procedure Description Patient is taken to the OR and prepped and draped in usual sterile fashion. Surgical time was performed. IV antibiotics given. Right inguinal oblique incision was made with a 10 blade. Dissection with cautery was carried down to the external oblique fascia. The external oblique fascia is open with a 15 blade. This incision was then extended meter and fairly lateral sparely with Metzenbaum scissors. Dissection was taken down to the cord structures. Incarcerated inguinal hernia was identified and manually reduced. This area was then bolstered with the disc portion of the ultra pro hernia system mesh. The disc is secured in place the running Prolene from the pubic tubercle along the shelving is able limit. Superiorly the disc is secured to internal oblique with interrupted 3-0 Vicryl. Onlay mesh was secured in a similar fashion with a running 0 Prolene from the pubic tubercle along the shelving single limit. Straps are created reapproximate around the cord structures with interrupted 0 Prolene. Onlay mesh was secured to enter oblique with interrupted 3-0 Vicryl. Externally fascia is closed with running 3-0 Vicryl. Matt's fascia is closed with interrupted 3-0 Vicryl. Skin is closed using inzorb observable skin stapler. A tap block was provided by the anesthesiologist. Steri-Strips and dry dressings were applied. Adair MARIO Jan 19, 2019 10:36
[2019-01-19] MEDS: HYDROmorphONE 1 MG/5 ML IV SYRINGE IV PRN ×2 (10:56→11:05)
--- NOTE | 2019-01-20 07:20 | PAC ---
Date/Time of Note Date/Time of Note DATE: 01/20/19 TIME: 07:19 Post-Anesthesia Notes Post-Anesthesia Note Last documented vital signs Vital Signs Date Temp Pulse Resp B/P (MAP) Pulse Ox O2 O2 Flow FiO2 Time Delivery Rate 01/19/19 96.9 55 18 164/74 97 11:41 (104) 01/19/19 Room Air 11:32 01/19/19 6.0 10:52 Activity: WNL Respiratory function: WNL Cardiovascular function: WNL Mental status: Baseline Pain reasonably controlled: Yes Hydration appropriate: Yes Nausea/Vomiting absent: Yes YUE GRANDE Jan 20, 2019 07:19
--- NOTE | 2019-01-21 16:36 | RADRPT ---
Vent Rate: 52 bpm RR Interval: 1160 msec MN Interval: 189 msec QRS Duration: 100 msec QT Interval: 450 msec QTC Interval: 418 msec P-R-T [place]: 14 - 44 - 34 degrees Sinus BRadycardia...normal P axis, V-rate 50- 99 Electronically Signed By: Len Haas
== END 2019-01-19 12:55 | disposition home or self-care (01) ==
LOC: SDS 07:25
PROVIDERS: ATTEND Surgery
DX: K40.30 Unilateral inguinal hernia, with obstruction, without gangrene, not specified as recurrent (principal); I10 Essential (primary) hypertension; E78.5 Hyperlipidemia, unspecified; I25.10 Atherosclerotic heart disease of native coronary artery without angina pectoris
CPT/HCPCS: 49507; 80053; 85025; 85610; 85730; 93005; C1781; J0690; J1170; J2001; J2795; J3010; Z7512; Z7610